=== PATIENT | female | born 1970 | race American Indian/Alaskan Native ===

== ENCOUNTER 2016-11-02 19:12 | Inpatient (IN) | payer SELFPAY ==
[2016-11-02 19:50] LABS: Basophils % (Auto) 0.6 % (0.0-1.8); Eosinophils % (Auto) 0.1 % (0.0-4.3); Hematocrit 41.7 % (30.3-42.9); Hemoglobin 13.3 gm/dl (10.1-14.3); Mean Corpuscular HGB Conc 32 % (30-34); Mean Corpuscular Volume 78 fl (79-97); Platelet Count 239 K/mm3 (140-440); Red Blood Count 5.37 M/mm3 (3.65-5.03); Red Cell Distribution Width 14.7 % (13.2-15.2); White Blood Count 9.3 K/mm3 (4.5-11.0)
[2016-11-02 20:02] LABS: Mean Corpuscular Hemoglobin 25 pg (28-32)
[2016-11-02 20:11] LABS: Alanine Aminotransferase 9 units/L (7-56); Albumin 3.8 g/dL (3.9-5); Albumin/Globulin Ratio 1.3 %; Alkaline Phosphatase 79 units/L (35-129); Anion Gap 19 mmol/L; BUN/Creatinine Ratio 7.14; Blood Urea Nitrogen 5 mg/dL (7-17); Calcium 8.4 mg/dL (8.4-10.2); Carbon Dioxide 23 mmol/L (22-30); Chloride 102.9 mmol/L (98-107); Glucose 98 mg/dL (65-100); Lipase 18 units/L (13-60); Potassium 3.9 mmol/L (3.6-5.0); Sodium 141 mmol/L (137-145); Total Protein 6.8 g/dL (6.3-8.2)
[2016-11-02 20:16] LABS: Bacteria,Urine 1+ /HPF (Negative); Bilirubin,Urine NEG (Negative); Blood,Urine SM (Negative); Ketones,Urine 20 mg/dL (Negative); Leukocyte Esterase,Urine NEG (Negative); Mucus,Urine FEW /HPF; Nitrite,Urine NEG (Negative); Protein,Urine <15 mg/dL mg/dL (Negative); Urobilinogen,Urine < 2.0 mg/dL (<2.0)
--- NOTE | 2016-11-03 07:42 | Emergency Department Report ---
ED Abdominal Pain HPI - General Chief Complaint: Abdominal Pain Stated Complaint: ABD PAIN Time Seen by Provider: 11/03/16 07:41 Source: patient, RN notes reviewed Mode of arrival: Ambulatory Limitations: No Limitations - History of Present Illness Initial Comments: This is a 46-year-old female. She is previously unknown to me. Her primary care doctor is Dr. Ann. Denies past medical history. Reports a past surgical history for bilateral tubal ligation. The patient presents to the ER complaining of abdominal pain. The abdominal pain is suprapubic and right lower quadrant. It is sharp and achy. It increases with palpation. It decreases with rest. The patient denies irritative obstructive urinary symptoms. She denies diarrhea, and is passing gas and having normal bowel movements. The patient reports 10 episodes of nonbloody, nonbilious emesis. The patient is sexually active with 1 male partner, and admits to chronic dyspareunia, which is not new, worsening or different. She reports no feminine or vaginal discharge. MD Complaint: abdominal pain -: Gradual Location: RLQ, suprapubic Severity scale (0 -10): 2 Quality: aching Consistency: constant Improves With: medication, rest Associated Symptoms: nausea, vomiting - Related Data Previous Rx's Medication Instructions Recorded Last Taken Type Ibuprofen [Motrin] 600 mg PO Q8H PRN #30 tablet 11/03/16 Unknown Rx Ondansetron [Zofran Odt] 4 mg PO QID PRN #20 tab.rapdis 11/03/16 Unknown Rx Allergies Allergy/AdvReac Type Severity Reaction Status Date / Time codeine Allergy Vomiting Verified 11/02/16 19:28 ED Review of Systems ROS: Stated complaint: ABD PAIN Other details as noted in HPI Constitutional: denies: fever, malaise Eyes: denies: vision change ENT: denies: epistaxis Respiratory: denies: cough Cardiovascular: denies: chest pain, palpitations Gastrointestinal: abdominal pain, nausea, vomiting Genitourinary: as per HPI Musculoskeletal: as per HPI Skin: as per HPI Neurological: as per HPI. denies: headache, weakness Psychiatric: as per HPI ED Past Medical Hx - Past Medical History Previous Medical History?: No - Surgical History Past Surgical History?: Yes Additional Surgical History: Tubal - Social History Smoking Status: Never Smoker Substance Use Type: None - Medications Home Medications: Home Medications Medication Instructions Recorded Confirmed Last Taken Type Ibuprofen [Motrin] 600 mg PO Q8H PRN #30 tablet 11/03/16 Unknown Rx Ondansetron [Zofran Odt] 4 mg PO QID PRN #20 tab.rapdis 11/03/16 Unknown Rx ED Physical Exam - General Limitations: No Limitations General appearance: alert, in no apparent distress - Head Head exam: Present: atraumatic, normocephalic - Eye Eye exam: Present: normal appearance, EOMI. Absent: nystagmus - ENT ENT exam: Present: normal exam, normal orophraynx, mucous membranes moist, normal external ear exam - Neck Neck exam: Present: normal inspection, full ROM. Absent: tenderness, meningismus - Respiratory Respiratory exam: Present: normal lung sounds bilaterally. Absent: respiratory distress, wheezes, rales, rhonchi, stridor, chest wall tenderness, accessory muscle use, decreased breath sounds, prolonged expiratory - Cardiovascular Cardiovascular Exam: Present: regular rate, normal rhythm, normal heart sounds. Absent: bradycardia, tachycardia, irregular rhythm, systolic murmur, diastolic murmur, rubs, gallop - GI/Abdominal GI/Abdominal exam: Present: soft, tenderness, normal bowel sounds, other (there is suprapubic and right lower quadrant tenderness, there is no rebound, guarding or peritoneal signs). Absent: distended, guarding, rebound, rigid, pulsatile mass - Extremities Exam Extremities exam: Present: normal inspection, full ROM, normal capillary refill. Absent: tenderness, pedal edema, joint swelling, calf tenderness - Back Exam Back exam: Present: normal inspection, full ROM. Absent: tenderness, CVA tenderness (R), CVA tenderness (L), muscle spasm, paraspinal tenderness, vertebral tenderness - Neurological Exam Neurological exam: Present: alert, oriented X3, normal gait, other (Extraocular movements intact. Tongue midline. No facial droop. Facial sensation intact to light touch in the V1, V2, V3 distribution bilaterally. 5 and 5 strength in 4 extremities.. Sensation is intact to light touch in 4 extremities.). Absent : motor sensory deficit - Psychiatric Psychiatric exam: Present: normal affect, normal mood - Skin Skin exam: Present: warm, dry, intact, normal color. Absent: rash ED Course Vital Signs 11/02/16 11/03/16 11/03/16 19:24 04:07 04:23 Temperature 98.4 F 98.0 F Pulse Rate 79 62 64 Respiratory 18 18 12 Rate Blood Pressure Blood Pressure 151/90 141/89 [Right] O2 Sat by Pulse 100 100 100 Oximetry 11/03/16 11/03/16 11/03/16 04:30 04:53 05:00 Temperature Pulse Rate 59 L 69 Respiratory 9 L 18 12 Rate Blood Pressure 130/75 140/81 Blood Pressure [Right] O2 Sat by Pulse 100 98 100 Oximetry 11/03/16 11/03/16 11/03/16 05:30 06:00 06:31 Temperature Pulse Rate 61 67 70 Respiratory 15 15 16 Rate Blood Pressure 142/75 133/80 125/74 Blood Pressure [Right] O2 Sat by Pulse 100 100 100 Oximetry 11/03/16 11/03/16 11/03/16 08:21 10:34 12:53 Temperature 97.5 F L 98.4 F 98.4 F Pulse Rate 88 90 80 Respiratory 16 16 16 Rate Blood Pressure Blood Pressure 133/81 139/71 135/83 [Right] O2 Sat by Pulse 100 100 100 Oximetry 11/03/16 14:26 Temperature 98.9 F Pulse Rate 60 Respiratory 16 Rate Blood Pressure Blood Pressure 112/57 [Right] O2 Sat by Pulse 100 Oximetry - Reevaluation(s) Reevaluation #1: 11/03/16 09:10 differential diagnosis: Appendicitis, renal colic, pelvic inflammatory disease, urinary tract infection, ovarian cyst Assessment and plan: 46-year-old female with unopposed nausea and vomiting, lower abdominal pain, tenderness, concerning for possible appendicitis. Has no irritative urinary symptoms, urinalysis is not corroborated UTI. Laboratory studies otherwise unremarkable. Patient will be treated symptomatically. CT scan has been performed. Interpretation is pending. Gynecologic examination is pending. Reevaluation #2: 11/03/16 10:27 CT scan of the abdomen and pelvis is negative for appendicitis. Physiologic pelvic fluid is noted, ovarian cyst is suggested in the left side. The patient had exquisite cervical motion tenderness, and bilateral adnexal tenderness. Some discharge is noted. Therefore, the patient will be treated in for pelvic inflammatory disease. Her pain is improved, and she is tolerating liquid feeds at this time. Reevaluation #3: 11/03/16 10:35 patient now having nausea after doxycycline. Reglan is ordered. Reevaluation #4: 11/03/16 11:29 The patient is unable to tolerate liquid feeds. The patient has received Zofran and Reglan. I have contacted the nurse drop wire hanger, Janet Esau, and she accepts the patient for admission to the gynecology service, on behalf of Dr. Ferreira. The patient will be admitted to the hospital for intractable nausea and vomiting , and presumed pelvic inflammatory disease. Reevaluation #5: 11/03/16 11:52 case is discussed with the music producer, Dr. Ferreira. She reports that she thinks it is very unlikely that this is pelvic inflammatory disease given the patient's age, and history of bilateral tubal ligation. She recommends medical admission. The hospital team was paged to facilitate admission. Case is discussed with advanced practice practitioner Cece, who accepts the patient on behalf of Dr French 11/03/16 11:53 ED Medical Decision Making - Lab Data Result diagrams: 11/04/16 06:51 11/04/16 06:51 Vital Signs 11/02/16 11/03/16 11/03/16 19:24 04:07 04:23 Temperature 98.4 F 98.0 F Pulse Rate 79 62 64 Respiratory 18 18 12 Rate Blood Pressure Blood Pressure 151/90 141/89 [Right] O2 Sat by Pulse 100 100 100 Oximetry 11/03/16 11/03/16 11/03/16 04:30 04:53 05:00 Temperature Pulse Rate 59 L 69 Respiratory 9 L 18 12 Rate Blood Pressure 130/75 140/81 Blood Pressure [Right] O2 Sat by Pulse 100 98 100 Oximetry 11/03/16 11/03/16 11/03/16 05:30 06:00 06:31 Temperature Pulse Rate 61 67 70 Respiratory 15 15 16 Rate Blood Pressure 142/75 133/80 125/74 Blood Pressure [Right] O2 Sat by Pulse 100 100 100 Oximetry 11/03/16 08:21 Temperature 97.5 F L Pulse Rate 88 Respiratory 16 Rate Blood Pressure Blood Pressure 133/81 [Right] O2 Sat by Pulse 100 Oximetry Lab Results 11/02/16 11/02/16 11/02/16 Range/Units 19:30 19:37 19:37 WBC 9.3 (4.5-11.0) K/mm3 RBC 5.37 H (3.65-5.03) M/mm3 Hgb 13.3 (10.1-14.3) gm/dl Hct 41.7 (30.3-42.9) % MCV 78 L (79-97) fl MCH 25 L (28-32) pg MCHC 32 (30-34) % RDW 14.7 (13.2-15.2) % Plt Count 239 (140-440) K/mm3 Lymph % (Auto) 18.4 (13.4-35.0) % [place] % (Auto) 3.2 (0.0-7.3) % Eos % (Auto) 0.1 (0.0-4.3) % Baso % (Auto) 0.6 (0.0-1.8) % Lymph # 1.7 (1.2-5.4) K/mm3 [place] # 0.3 (0.0-0.8) K/mm3 Eos # 0.0 (0.0-0.4) K/mm3 Baso # 0.1 (0.0-0.1) K/mm3 Seg Neutrophils % 77.7 H (40.0-70.0) % Seg Neutrophils # 7.2 (1.8-7.7) K/mm3 Sodium 141 (137-145) mmol/L Potassium 3.9 (3.6-5.0) mmol/L Chloride 102.9 (98-107) mmol/L Carbon Dioxide 23 (22-30) mmol/L Anion Gap 19 mmol/L BUN 5 L (7-17) mg/dL Creatinine 0.7 (0.7-1.2) mg/dL Estimated GFR > 60 ml/min BUN/Creatinine Ratio 7.14 % Glucose 98 (65-100) mg/dL Calcium 8.4 (8.4-10.2) mg/dL Total Bilirubin 0.60 (0.1-1.2) mg/dL AST 13 (5-40) units/L ALT 9 (7-56) units/L Alkaline Phosphatase 79 (35-129) units/L Total Protein 6.8 (6.3-8.2) g/dL Albumin 3.8 L (3.9-5) g/dL Albumin/Globulin Ratio 1.3 % Lipase 18 (13-60) units/L HCG, Qual (Negative) Urine Color Yellow (Yellow) Urine Turbidity Clear (Clear) Urine pH 6.0 (5.0-7.0) Ur Specific [place] 1.011 (1.003-1.030) Urine Protein <15 mg/dl (Negative) mg/dL Urine Glucose (UA) Neg (Negative) mg/dL Urine Ketones 20 (Negative) mg/dL Urine Blood Sm (Negative) Urine Nitrite Neg (Negative) Urine Bilirubin Neg (Negative) Urine Urobilinogen < 2.0 (<2.0) mg/dL Ur Leukocyte Esterase Neg (Negative) Urine WBC (Auto) 1.0 (0.0-6.0) /HPF Urine RBC (Auto) 3.0 (0.0-6.0) /HPF U Epithel Cells (Auto) 6.0 (0-13.0) /HPF Urine Bacteria (Auto) 1+ (Negative) /HPF Urine Mucus Few /HPF 11/02/16 Range/Units 19:37 WBC (4.5-11.0) K/mm3 RBC (3.65-5.03) M/mm3 Hgb (10.1-14.3) gm/dl Hct (30.3-42.9) % MCV (79-97) fl MCH (28-32) pg MCHC (30-34) % RDW (13.2-15.2) % Plt Count (140-440) K/mm3 Lymph % (Auto) (13.4-35.0) % [place] % (Auto) (0.0-7.3) % Eos % (Auto) (0.0-4.3) % Baso % (Auto) (0.0-1.8) % Lymph # (1.2-5.4) K/mm3 [place] # (0.0-0.8) K/mm3 Eos # (0.0-0.4) K/mm3 Baso # (0.0-0.1) K/mm3 Seg Neutrophils % (40.0-70.0) % Seg Neutrophils # (1.8-7.7) K/mm3 Sodium (137-145) mmol/L Potassium (3.6-5.0) mmol/L Chloride (98-107) mmol/L Carbon Dioxide (22-30) mmol/L Anion Gap mmol/L BUN (7-17) mg/dL Creatinine (0.7-1.2) mg/dL Estimated GFR ml/min BUN/Creatinine Ratio % Glucose (65-100) mg/dL Calcium (8.4-10.2) mg/dL Total Bilirubin (0.1-1.2) mg/dL AST (5-40) units/L ALT (7-56) units/L Alkaline Phosphatase (35-129) units/L Total Protein (6.3-8.2) g/dL Albumin (3.9-5) g/dL Albumin/Globulin Ratio % Lipase (13-60) units/L HCG, Qual Negative (Negative) Urine Color (Yellow) Urine Turbidity (Clear) Urine pH (5.0-7.0) Ur Specific [place] (1.003-1.030) Urine Protein (Negative) mg/dL Urine Glucose (UA) (Negative) mg/dL Urine Ketones (Negative) mg/dL Urine Blood (Negative) Urine Nitrite (Negative) Urine Bilirubin (Negative) Urine Urobilinogen (<2.0) mg/dL Ur Leukocyte Esterase (Negative) Urine WBC (Auto) (0.0-6.0) /HPF Urine RBC (Auto) (0.0-6.0) /HPF U Epithel Cells (Auto) (0-13.0) /HPF Urine Bacteria (Auto) (Negative) /HPF Urine Mucus /HPF - Radiology Data Radiology results: pending, report reviewed, image reviewed CT scan of the abdomen and pelvis demonstrates suspicion of small left ovarian cyst, minimal fluid in the cul-de-sac, there is normal-appearing appendix. Critical care attestation.: If time is entered above; I have spent that time in minutes in the direct care of this critically ill patient, excluding procedure time. ED Disposition Clinical Impression: Intractable nausea and vomiting, Pelvic inflammatory disease Disposition: [id number] OP ADMIT IP TO THIS HOSP Is pt being admited?: Yes Does the pt Need Aspirin: No Condition: Stable
[2016-11-03] MEDS ORDERED: MORPHINE IV ONE (07:50)
[2016-11-03] MEDS ORDERED: NACL 0.9% 1000 ML 1,000 ML IV ONE (07:50)
[2016-11-03] MEDS ORDERED: ZOFRAN IV ONE (07:50)
[2016-11-03] MEDS ORDERED: NACL ONE (07:53)
--- NOTE | 2016-11-03 09:48 | Cat Scan Report ---
CT scan of abdomen and pelvis with IV contrast: History: Right lower quadrant pain. Findings: Normal lung bases. No pleural pericardial effusion. Normal liver spleen pancreas and gallbladder. Normal adrenals kidney parenchyma and bladder. Minimal fluid in the cul-de-sac. Suspicion of a cyst in the left ovary. No evidence of adenopathy. Normal aorta. Gaseous colon with moderate volume stool in colon. Normal appendix. No evidence of diverticulitis. Small right inguinal hernia containing fat. Impression: Suspicion of small left ovarian cyst. Minimal fluid in the cul-de-sac. Right inguinal hernia containing fat measuring 3 cm in diameter.
[2016-11-03] MEDS ORDERED: TORADOL IV ONE (09:54)
[2016-11-03] MEDS ORDERED: VIBRAMYCIN PO ONE (10:02)
[2016-11-03] MEDS ORDERED: ROCEPHIN 250 MG in NACL 0.9% 50 ML IV ONE (10:02)
[2016-11-03] MEDS ORDERED: REGLAN IV ONE (10:35)
--- NOTE | 2016-11-03 11:51 | Admit Criteria Form ---
Admission Criteria Documentation: PELVIC INFLAMMATORY DISEASE (PID), ACUTE Clinical Indications for Admission to Inpatient Care (Place 'X' for any and all applicable criteria): Admission is indicated for PID with 1 or more of the following (1)(2)(3)(4)(5): [ ]I. [ ]II. Failure of outpatient treatment [ ]III. Tubo-ovarian abscess [ ]IV. Immunodeficiency state (eg, HIV infection with low CD4 count, immunosuppressive therapy, other disease causing immunodeficiency) [ ]V. Bacteremia [ ]. Hemodynamic instability [X]VII. Inpatient admission required rather than observation care (Also use Pelvic Inflammatory Disease (PID), Acute: as appropriate) because of 1 or more of the following: [X]a) Vomiting that is severe or persistent [ ]b) Severe pain requiring acute inpatient management [ ]c) Etiology or finding that requires inpatient management (eg, ovarian torsion, peritonitis) [ ]d) Other condition, treatment or monitoring requiring inpatient admission Extended stay beyond goal length of stay may be needed for (2)(14) [ ]a) Tubo-ovarian abscess, peritonitis, or continued pain, fever, tenderness, or leukocytosis The original [employer] content created by [employer] has been revised. The portions of the content which have been revised are identified through the use of italic text or in bold, and [facility] has neither reviewed nor approved the modified material. All other unmodified content is copyright [facility]. Please see references footnoted in the original [facility] [employer] edition 2016 Admission Criteria Met: Yes
[2016-11-03] MEDS ORDERED: ZOFRAN IV PRN (12:37)
[2016-11-03] MEDS ORDERED: DULCOLAX PR PRN (12:37)
[2016-11-03] MEDS ORDERED: MORPHINE IV PRN (12:37)
[2016-11-03] MEDS ORDERED: TYLENOL PO PRN (12:37)
[2016-11-03] MEDS ORDERED: MILK OF MAGNESIA PO PRN (12:37)
[2016-11-03] MEDS ORDERED: NACL 0.9% 1000 ML 1,000 ML IV SCH (13:00)
--- NOTE | 2016-11-03 18:48 | History and Physical Report ---
History of Present Illness Date of examination: 11/03/16 Date of admission: 11/03/16 13:30 Chief complaint: Lower abdominal pain, Nausea and vomiting History of present illness: Patient is a 46 years old female with no past medical history who presents to the ED with lower abdominal pain in suprapubic, nausea and vomiting. The patient states that for the past two days she has felt bloated and has had a decrease in appetite. Two days ago she began having intermittent abdominal pain that initially felt like gas pains but it has now progressed to being nearly constant. Since yesterday she has had severe nausea and has had 10 episodes of nonbilious vomiting . Her last bowel movement was over three days ago. She has a history of intermittent constipation but never with this level of pain, the vomiting, or the bloating. . Currently, the pain is described as a constant dull , diffuse pain that intermittently becomes sharp and well localized. The sharp pain tends to occur in different locations at different times. The intensity of the pain has been increasing since yesterday and on pain scale she now rates the pain at 8 out of 10. She denies a recent history of fever, jaundice, diarrhea, hemoptysis, melena. Patient was diagnosed with Pelvic inflammatory disease yesterday and doxycycline. patient is sexually active with 1 male partner and reported chronic dyspareunia Past History Past Surgical History: No surgical history Social history: no significant social history, Lives alone Family history: CAD, hypertension Medications and Allergies Allergies Allergy/AdvReac Type Severity Reaction Status Date / Time codeine Allergy Vomiting Verified 11/02/16 19:28 Home Medications Medication Instructions Recorded Confirmed Last Taken Type Doxycycline [Vibramycin] 100 mg PO Q12HR #28 capsule 11/03/16 Unknown Rx Ibuprofen [Motrin] 600 mg PO Q8H PRN #30 tablet 11/03/16 Unknown Rx Ondansetron [Zofran Odt] 4 mg PO QID PRN #20 tab.rapdis 11/03/16 Unknown Rx Active Meds: Active Medications Acetaminophen (Tylenol) 650 mg PO Q4H PRN PRN Reason: Pain MILD(1-3)/Fever >100.5/HUSSEIN Bisacodyl (Dulcolax) 10 mg IA QDAY PRN PRN Reason: Constipation unrelieved by MOM Doxycycline Hyclate (Vibramycin) 100 mg PO BID UTE Sodium Chloride (Nacl 0.9% 1000 Ml) 1,000 mls @ 75 mls/hr IV DIRECT UTE Ceftriaxone Sodium (Rocephin/Ns 2 Gm/100 Ml) 2 gm in 100 mls @ 200 mls/hr IV Q24HR UTE PRN Reason: Protocol Metronidazole (Flagyl 500 Mg/100 Ml) 500 mg in 100 mls @ 100 mls/hr IV Q8HR UTE PRN Reason: Protocol Magnesium Hydroxide (Milk Of Magnesia) 30 ml PO Q4H PRN PRN Reason: Constipation Morphine Sulfate (Morphine) 2 mg IV Q4H PRN PRN Reason: Pain, Moderate (4-6) Ondansetron HCl (Zofran) 4 mg IV Q4H PRN PRN Reason: N/V unrelieved by Reglan Review of Systems Constitutional: no weight loss, no weight gain Ears, nose, mouth and throat: no deferred, no ear pain, no ear discharge, no tinnitis Breasts: normal Cardiovascular: no chest pain, no orthopnea, no palpitations Respiratory: no cough, no cough with sputum, no excessive sputum, no hemoptysis Gastrointestinal: abdominal pain, nausea, vomiting, no diarrhea, no constipation , no change in bowel habits Genitourinary Female: dyspareunia, pelvic pain, dysuria, no urinary frequency, no stress incontinence, no post void dribbling, no urge incontinence, no mixed incontinence Menstruation: menses 8 or > days, no premenarcheal Musculoskeletal: no neck stiffness, no neck pain, no shooting arm pain, no arm numbness/tingling Integumentary: no deferred, no rash, no pruritis, no redness Neurological: no head injury, no transient paralysis, no paralysis Psychiatric: no anxiety, no memory loss, no change in sleep habits, no sleep disturbances, no insomnia Endocrine: no cold intolerance, no heat intolerance, no polyphagia, no excessive thirst Hematologic/Lymphatic: no easy bruising, no easy bleeding Exam - Constitutional Vitals: Temp Pulse Resp BP Pulse Ox 98 F 56 L 18 144/76 98 11/03/16 16:17 11/03/16 16:17 11/03/16 16:17 11/03/16 16:17 11/03/16 16:17 General appearance: Present: no acute distress, well-nourished - EENT Eyes: Present: PERRL, EOM intact ENT: hearing intact, clear oral mucosa, dentition normal - Neck Neck: Present: supple, normal ROM - Respiratory Respiratory effort: normal Respiratory: bilateral: CTA - Cardiovascular Heart Sounds: Present: S1 & S2. Absent: rub, click - Extremities Extremities: pulses symmetrical, No edema - Abdominal General gastrointestinal: Present: soft, tender Localized gastrointestinal: tender: RLQ, LLQ, guarding: RLQ, LLQ Female genitourinary: Present: deferred - Rectal Rectal Exam: deferred - Integumentary Integumentary: Present: clear, warm, dry - Musculoskeletal Musculoskeletal: gait normal, strength equal bilaterally - Psychiatric Psychiatric: appropriate mood/affect, intact judgment & insight - Neurologic Neurologic: CNII-XII intact, moves all extremities Results - Labs CBC & Chem 7: 11/02/16 19:37 11/02/16 19:37 Labs: Laboratory Last Values WBC 9.3 K/mm3 (4.5-11.0) 11/02/16 19:37 RBC 5.37 M/mm3 (3.65-5.03) H 11/02/16 19:37 Hgb 13.3 gm/dl (10.1-14.3) 11/02/16 19:37 Hct 41.7 % (30.3-42.9) 11/02/16 19:37 MCV 78 fl (79-97) L 11/02/16 19:37 MCH 25 pg (28-32) L 11/02/16 19:37 MCHC 32 % (30-34) 11/02/16 19:37 RDW 14.7 % (13.2-15.2) 11/02/16 19:37 Plt Count 239 K/mm3 (140-440) 11/02/16 19:37 Lymph % (Auto) 18.4 % (13.4-35.0) 11/02/16 19:37 [place] % (Auto) 3.2 % (0.0-7.3) 11/02/16 19:37 Eos % (Auto) 0.1 % (0.0-4.3) 11/02/16 19:37 Baso % (Auto) 0.6 % (0.0-1.8) 11/02/16 19:37 Lymph # 1.7 K/mm3 (1.2-5.4) 11/02/16 19:37 [place] # 0.3 K/mm3 (0.0-0.8) 11/02/16 19:37 Eos # 0.0 K/mm3 (0.0-0.4) 11/02/16 19:37 Baso # 0.1 K/mm3 (0.0-0.1) 11/02/16 19:37 Seg Neutrophils % 77.7 % (40.0-70.0) H 11/02/16 19:37 Seg Neutrophils # 7.2 K/mm3 (1.8-7.7) 11/02/16 19:37 Sodium 141 mmol/L (137-145) 11/02/16 19:37 Potassium 3.9 mmol/L (3.6-5.0) 11/02/16 19:37 Chloride 102.9 mmol/L (98-107) 11/02/16 19:37 Carbon Dioxide 23 mmol/L (22-30) 11/02/16 19:37 Anion Gap 19 mmol/L 11/02/16 19:37 BUN 5 mg/dL (7-17) L 11/02/16 19:37 Creatinine 0.7 mg/dL (0.7-1.2) 11/02/16 19:37 Estimated GFR > 60 ml/min 11/02/16 19:37 BUN/Creatinine Ratio 7.14 % 11/02/16 19:37 Glucose 98 mg/dL (65-100) 11/02/16 19:37 Calcium 8.4 mg/dL (8.4-10.2) 11/02/16 19:37 Total Bilirubin 0.60 mg/dL (0.1-1.2) 11/02/16 19:37 AST 13 units/L (5-40) 11/02/16 19:37 ALT 9 units/L (7-56) 11/02/16 19:37 Alkaline Phosphatase 79 units/L (35-129) 11/02/16 19:37 Total Protein 6.8 g/dL (6.3-8.2) 11/02/16 19:37 Albumin 3.8 g/dL (3.9-5) L 11/02/16 19:37 Albumin/Globulin Ratio 1.3 % 11/02/16 19:37 Lipase 18 units/L (13-60) 11/02/16 19:37 HCG, Qual Negative (Negative) 11/02/16 19:37 Urine Color Yellow (Yellow) 11/02/16 19:30 Urine Turbidity Clear (Clear) 11/02/16 19:30 Urine pH 6.0 (5.0-7.0) 11/02/16 19:30 Ur Specific [place] 1.011 (1.003-1.030) 11/02/16 19:30 Urine Protein <15 mg/dl mg/dL (Negative) 11/02/16 19:30 Urine Glucose (UA) Neg mg/dL (Negative) 11/02/16 19:30 Urine Ketones 20 mg/dL (Negative) 11/02/16 19:30 Urine Blood Sm (Negative) 11/02/16 19:30 Urine Nitrite Neg (Negative) 11/02/16 19:30 Urine Bilirubin Neg (Negative) 11/02/16 19:30 Urine Urobilinogen < 2.0 mg/dL (<2.0) 11/02/16 19:30 Ur Leukocyte Esterase Neg (Negative) 11/02/16 19:30 Urine WBC (Auto) 1.0 /HPF (0.0-6.0) 11/02/16 19:30 Urine RBC (Auto) 3.0 /HPF (0.0-6.0) 11/02/16 19:30 U Epithel Cells (Auto) 6.0 /HPF (0-13.0) 11/02/16 19:30 Urine Bacteria (Auto) 1+ /HPF (Negative) 11/02/16 19:30 Urine Mucus Few /HPF 11/02/16 19:30 - Imaging and Cardiology CT scan - abdomen: image reviewed (Small left Ovarian cyst. minimal fluid in the cul-de-sac. Right inguinal hernia containing fat measuring 3 cm in diameter. ) Assessment and Plan Assessment and plan: ASSESSMENT/PLAN 1. Pelvic inflammatory disease we will admit to MED/SURG We initiated empric treatment with doxycycline ,Rocephin and Flagyl to cover Chlamydia Gonorrhea and Trichomonas. Pain control with morphine OBGYN consulted for further evaluation 2. Intractable nausea and vomiting: Patient on Zofran and phenergan IVF hydration for now VTE/GI Prophylaxis Lovenox/ Protonix
[2016-11-03] MEDS ORDERED: ROCEPHIN/NS 2 GM/100 ML 2 GM/100 ML BAG IV SCH (19:00)
[2016-11-03] MEDS: FLAGYL 500 MG/100 ML 500 MG/100 ML BAG IV SCH (21:14)
[2016-11-03] MEDS ORDERED: VIBRAMYCIN PO SCH (22:00)
[2016-11-04] MEDS: FLAGYL 500 MG/100 ML 500 MG/100 ML BAG IV SCH (05:31)
[2016-11-04 07:48] LABS: Basophils % (Auto) 0.8 % (0.0-1.8); Eosinophils % (Auto) 1.5 % (0.0-4.3); Hematocrit 37.7 % (30.3-42.9); Hemoglobin 12.1 gm/dl (10.1-14.3); Mean Corpuscular HGB Conc 32 % (30-34); Mean Corpuscular Volume 78 fl (79-97); Platelet Count 211 K/mm3 (140-440); Red Blood Count 4.84 M/mm3 (3.65-5.03); Red Cell Distribution Width 14.6 % (13.2-15.2); White Blood Count 7.4 K/mm3 (4.5-11.0)
[2016-11-04 07:49] LABS: Mean Corpuscular Hemoglobin 25 pg (28-32)
--- NOTE | 2016-11-04 07:59 | Discharge Summary ---
Providers - Providers Date of Admission: 11/03/16 13:30 Attending physician: ALFRED DIZA MD 11/03/16 18:14 Consult to Physician [CONS] Routine Consulting Provider: ANDRÉS GUDINO Reason For Exam: PID Place consult to:: Notified:: [facility] Phone number called:: [phone] Was contact made?: Yes If yes, spoke with:: OMAR Time called:: 19:11 Comment:: TREVOR NOTIFIED Primary care physician: VEGETABLE CUTTER Hospitalization Condition: Stable Hospital course: 46-year-old woman who presented with 1 day of intractable nausea vomiting, she vomited 10 times was complaining of lower abdominal pain. She went on to have labs ON mostly unremarkable, shows little to have a CT scan of her abdomen that was negative for any acute abnormalities, she also went on to have a vaginal exam, weight prep was negative. Vomiting resolved, patient was discharged home after receiving supportive care and improved condition Discharge diagnoses Acute gastroenteritis Intractable nausea and vomiting Dehydration Disposition: - TO HOME OR SELFCARE Time spent for discharge: 32 minutes Core Measure Documentation - Palliative Care Palliative Care/ Comfort Measures: Not Applicable - Core Measures Any of the following diagnoses?: none Exam - Constitutional Vitals: Temp Pulse Resp BP Pulse Ox 98.1 F 79 18 144/79 100 11/04/16 00:00 11/04/16 00:00 11/04/16 00:00 11/04/16 00:00 11/04/16 00:00 General appearance: Present: no acute distress, well-nourished - EENT Eyes: Present: PERRL ENT: hearing intact, clear oral mucosa - Neck Neck: Present: supple, normal ROM - Respiratory Respiratory effort: normal Respiratory: bilateral: CTA - Cardiovascular Heart Sounds: Present: S1 & S2. Absent: rub, click - Extremities Extremities: pulses symmetrical, No edema Peripheral Pulses: within normal limits - Abdominal General gastrointestinal: Present: soft, non-tender, non-distended, normal bowel sounds Female genitourinary: Present: normal - Integumentary Integumentary: Present: clear, warm, dry - Musculoskeletal Musculoskeletal: gait normal, strength equal bilaterally - Psychiatric Psychiatric: appropriate mood/affect, intact judgment & insight - Neurologic Neurologic: CNII-XII intact, moves all extremities Plan Follow up with: [facility] [Provider Group] - 3-5 Days [facility] [Provider Group] - 3-5 Days [facility] [Provider Group] - 3-5 Days [facility] [Primary Care Provider] - 3-5 Days Prescriptions: Ibuprofen [Motrin] 600 mg PO Q8H PRN #30 tablet PRN Reason: Pain Ondansetron [Zofran Odt] 4 mg PO QID PRN #20 tab.rapdis PRN Reason: Nausea
[2016-11-04 08:02] LABS: Anion Gap 13 mmol/L; BUN/Creatinine Ratio 8.75; Blood Urea Nitrogen 7 mg/dL (7-17); Carbon Dioxide 27 mmol/L (22-30); Chloride 105.9 mmol/L (98-107); Glucose 112 mg/dL (65-100); Potassium 3.9 mmol/L (3.6-5.0); Sodium 142 mmol/L (137-145)
[2016-11-04 09:04] VITALS: BP 118/82
== END 2016-11-04 14:30 | disposition home or self-care (01) | DRG 392 ==
LOC: ED 19:12 → 3A 11-03 13:30
PROVIDERS: ADMIT Internal Medicine; ATTEND Internal Medicine
DX: K52.9 Noninfective gastroenteritis and colitis, unspecified (principal); N73.9 Female pelvic inflammatory disease, unspecified; E86.0 Dehydration; Z60.2 Problems related to living alone; Z88.8 Allergy status to other drugs, medicaments and biological substances; Z82.49 Family history of ischemic heart disease and other diseases of the circulatory system
CPT/HCPCS: 36415; 74177; 80048; 80053; 81001; 83690; 84703; 85025; 87210; 87591; 96361; 96365; 96375; 99285; J0696; J1885; J2270; J2405; J2765; J7030; Q9967